=== PATIENT | female | born 1935 | race Caucasian/White ===

== ENCOUNTER → 2017-02-07 | Outpatient (CLI) | payer OTHER ==
[~2017-02-07] MED LIST: ACTOS; ALENDRONATE SOD70 M1 PO; ALPRAZOLAM; ALPRAZOLAM PO; ARICEPT PO; ASPIRIN81 M1 PO; ATENOLOL; B COMPLEX1 CA1 PO; B-12500 MCG PO; CELEXA PO; CELEXA20 MG PO; CERTAGEN PO; COMPLETE MULTI1 EACH PO; DARVOCET-N 1001 TAB PO; DEXFOL PO; FOSAMAX PO; GLUCOPHAGE XR500 MG; HCTZ; HYDROCODONE-APA1 T33 PO; JANUVIA PO; KEPPRA500 M1 PO; KEPPRA500 MG PO; KLOR-CON PO; LEVOXYL0.137 MG PO; LIPITOR; LIPITOR20 MG PO; LORTAB 5/500 TA1 TA2 PO; LOSARTAN POTASS50 MG PO; METFORMIN; METFORMIN PO; MULTI-VITAMIN1 EAC1 PO; NORCO 5/325 TAB1 TAB PO; OYSTER CALCIUM500 MG PO; PANTOPRAZOLE SO40 MG PO; PERCOCET; SYNTHROID; SYNTHROID PO; SYNTHROID137 MCG PO; TOPAMAX; VESICARE PO; VIBRAMYCIN100 M1 PO; VICODIN 5/500 T1 TAB PO; VITAMIN D-32000 UNI1 PO; VITAMIN D2000 UNIT PO; XANAX0.5 MG PO; ZOCOR PO; ZOCOR20 MG PO; [UNRECOGNIZED DRUG - REMARK]
--- NOTE | ~2017-02-07 | MY29 ---
[facility] A Service of [facility] RADIOLOGY TEXT RESULTS PATIENT: ADONIS CUEVAS LOCATION: [facility] : 39 UNIT #: [id number] AGE: [address]: Alan Asif MD SEX: F ORDER DR: [id number] [facility]. [place], [place] [address] [id number] O MR#: [id number] Acc #: [id number] NAME: ADONIS CUEVAS : 1935 SEX: F STUDY DATE/TIME: 02/07/2017 11:09 UNIT: [facility] ROOM: STUDY DESCRIPTION: MY MUNA SCREENING W/ CAD BILAT Attending Physician: Alan Asif M.D. Referring Physician: Alan Asif M.D. Ordering Physician: Alan Asif M.D. Primary Care Physician: Alan Asif M.D. MEDICAL IMAGING REPORT This report is preliminary unless electronic signature is present EXAM Bilateral Digital Screening Mammogram with CAD INDICATION Breast cancer screening. A 81-year-old asymptomatic female. No personal or family history breast cancer COMPARISON February 05, 2016, January 31, 2015, January 16, 2014 , October 19, 2013, December 06, 2011. September 03, 2010, May 27, 2007 and April 21, 2006 FINDINGS The breasts are almost entirely fatty. No suspicious findings are present. IMPRESSION No mammographic evidence of malignancy. Annual screening mammography and clinical breast exam are recommended. A result letter will be sent to the patient. Patients over the age of 40 are entered into a reminder system with target due date for the next mammogram. BIRADS: 1 Negative Dictated by... Mark Bautista M.D. THIS IS AN ELECTRONICALLY VERIFIED REPORT [facility] A Service [facility] RADIOLOGY TEXT RESULTS PATIENT: ADONIS CUEVAS LOCATION: [facility] : 39 UNIT #: [id number] AGE: [address]: Alan Asif MD SEX: F ORDER DR: Mark Bautista M.D. at 02/11/2017 8:41 PM BRIDGER/allison TD: 02/07/2017 13:50 JOB #: [id number] MEDICAL IMAGING REPORT Page 1 of 1 COPY
== END | disposition home or self-care (01) ==
LOC: CWCC 10:47
DX: Z12.31 Encounter for screening mammogram for malignant neoplasm of breast (principal)
CPT/HCPCS: G0202